=== PATIENT | male | born 1955 | race Caucasian/White ===

== ENCOUNTER → 2023-09-21 | Day surgery (SDC) | payer MEDICARE, MEDICAID ==
[~2023-09-21] VITALS: Ht 165.1 cm; Wt 79.8 kg
[~2023-09-21] MED LIST: ACETAMINOPHEN 1000MG/100ML 100 ML IV NR; ACETAMINOPHEN 500MG TABLET ONE; ACETAZOLAMIDE SODIUM 500MG/VIAL IV ONE; AMLO10TA80 PO; ATEN50TA PO; BUPIVACAINE HCL/PF 0.5% (5MG/ML) 10ML ONE; FENTANYL CITRATE/PF 50MCG/ML 2ML VIAL ONE; IBUP-2028 PO; LABETALOL 5MG/ML 4ML INJ IV PRN; LIDOCAINE HCL 1% 10 MG/ML 10ML VIAL ONE; LOSA1TAB34 PO; MEPERIDINE HCL/PF 25MG/ML CPJ IV PRN; MIDAZOLAM HCL 2 MG/2 ML VIAL ONE; ONDANSETRON HCL 4MG/2ML INJ IV PRN; PROPOFOL 200MG/20ML VIAL IV ONE; RIVA20TA PO; ROCURONIUM BROMIDE 10MG/ML VIAL 5ML IV ONE; SKIN ADHESIVE 0.7 GM EA TOP ONE
[2023-09-21] MEDS: LACTATED RINGERS 1,000 ML IV SCH (08:23)
[2023-09-21] MEDS: HYDROMORPHONE HCL/PF 2MG/ML CPJ IV PRN (15:12)
[2023-09-21 15:27] VITALS: BP 154/99; PULSE 74; RESP 15
[2023-09-21] MEDS: ACETAMINOPHEN WITH CODEINE 300/30MG TABLET PO NR (15:27)
== END | disposition home or self-care (01) ==
LOC: OR 07:07
PROVIDERS: ATTEND Surgery
DX: K40.90 Unilateral inguinal hernia, without obstruction or gangrene, not specified as recurrent (principal); I10 Essential (primary) hypertension; I48.91 Unspecified atrial fibrillation; Z79.899 Other long term (current) drug therapy; Z98.890 Other specified postprocedural states
CPT/HCPCS: 49505; J3010; J0131; J3490 ×3; J2250; J2704; J1120; J1170; A4217; Z7610 ×18; J7030; C1781